=== PATIENT | female | born 1980 | race Caucasian/White ===

== ENCOUNTER 2016-06-16 08:06 | Emergency (ER) | payer MEDICARE ==
[~2016-06-16] VITALS: Ht 175.3 cm; Wt 100.0 kg
[~2016-06-16 08:06] MED LIST: CLONAZEPAM1 M1 PO; CRB400TCR; FERROCITE; LURA40TA PO; MINO100C PO; MIRT45TA PO; OMEP20TA86 PO; PROM25AM13; SYN25 PO; [UNRECOGNIZED DRUG - CODE] PO
[2016-06-16 08:07] VITALS: BP 119/96; PULSE 100; RESP 16; O2SAT 96
--- NOTE | 2016-06-16 08:10 | ED.REPORT ---
HPI-Psychiatric Illness Date of Service Jun 16, 2016 ED Provider: Dr. Kyrie Bobby MD A 35 year old female with a history of schizophrenia, seizures, bipolar disorder and suicidal ideation presents to the ED via EMS complaining of auditory and visual hallucinations that began approx. one week ago. Patient states that she can see "purple rats". She often forgets to take her Haldol and has not taken it today. Patient is currently staying at [facility] after recently leaving [facility] one week ago. Patient also reports insomnia and suicidal ideation with a plan to "drink bleach". She is currently taking Nitrofuran for a UTI. She denies recent alcohol use. Nursing Notes Stated Complaint: HALLUCINATIONS Chief Complaint: Psychiatric Complaint Nursing Notes Reviewed: Yes Allergies: Coded Allergies: buspirone (Verified Allergy, Severe, 06/16/16) divalproex sodium (Verified Allergy, Severe, 06/16/16) egg (Verified Allergy, Severe, 06/16/16) hydromorphone (Verified Allergy, Severe, SEIZURES, 06/16/16) sulfamethoxazole (Verified Allergy, Severe, 06/16/16) trimethoprim (Verified Allergy, Severe, 06/16/16) milk (Verified Allergy, Intermediate, 06/16/16) Scheduled ([Ferrocite]) 324 AM ClonazePAM-Expunged Drug, Do Not Renew! (ClonazePAM-Expunged Drug, Do Not Renew! ) 1 Mg Tablet 1 MG PO TID FOR ANXIETY Levetiracetam-Expunged Drug, Do Not Renew! (Levetiracetam-Expunged Drug, Do Not Renew!) 500 Mg Tab.er.24h 1,000 MG PO AM Levetiracetam-Expunged Drug, Do Not Renew! (Levetiracetam-Expunged Drug, Do Not Renew!) 500 Mg Tab.er.24h 1,000 MG PO NOON Levetiracetam-Expunged Drug, Do Not Renew! (Levetiracetam-Expunged Drug, Do Not Renew!) 500 Mg Tab.er.24h 1,500 MG PO HS Levothyroxine-Expunged Drug, Do Not Renew! (Synthroid-Expunged Drug, Do Not Renew!) 25 Mcg Tablet 25 MCG PO DAILY Lurasidone-Expunged Drug, Do Not Renew! (Latuda-Expunged Drug, Do Not Renew!) 40 Mg Tablet 40 MG PO DAILY Minocycline-Expunged Drug, Do Not Renew! (Minocin-Expunged Drug, Do Not Renew!) 100 Mg Capsule 100 MG PO BID Mirtazapine-Expunged Drug, Do Not Renew! (Remeron-Expunged Drug, Do Not Renew!) 45 Mg Tablet 45 MG PO HS Omeprazole-Expunged Drug, Do Not Renew! (Omeprazole-Expunged Drug, Do Not Renew! ) 20 Mg Tablet.dr 20 MG PO BID Miscellaneous Medications Carbamazepine-Expunged Drug, Do Not Renew! (Carbamazepine XR-Expunged Drug, Do Not Renew!) 400 Mg Tab.sr.12h Promethazine-Expunged Drug, Do Not Renew! (Phenergan-Expunged Drug, Do Not Renew !) 25 Mg Tab General Time Seen by MD: 08:09 Chief Complaint Hallucinations, auditory, Hallucinations, visual Hx Obtained From: Patient Arrived By: Ambulance Onset Occurred: 1 week ago Symptom Duration: Since onset Progression Since Onset: Unchanged Additional Notes: Insomnia Suicidal ideation Pertinent Negative: Pt denies other symptoms Recent Healthcare: No recent hospitalization, Recent doctor visit Risk-Psychiatric Illness Suicide Risk Stratification RF Statements: Risk factors reviewed Past Medical History Past Medical History Notes: PCP: Dr. Cason Past Medical History Seizures on [facility]-last seizure was yesterday Schizophrenia History of bipolar disorder and depression with multiple admissions for suicidal ideation Bipolar disorder Recurrent UTIs depression Reports: Acid reflux Past Surgical History none reported Smoking History Never Smoker Social History Pt currently lives at [facility] Alcohol Use: Denies alcohol use Other Social History: Local resident Ambulatory Status Independent Review of Systems Constitutional: Denies: Chills, Fever Respiratory: Denies: Shortness of breath Cardiovascular: Denies: Chest pain GI: Denies: Nausea, Vomiting Neurologic: Denies: Change LOC Psychiatric: Reports: Hallucinations, auditory, Hallucinations, visual, Insomnia, Suicidal ideation (w/ plan) Complete sys rev & neg: except as marked. Physical Exam Initial Vital Signs Vital Signs (First) Date Time Temp Pulse Resp B/P Pulse Ox O2 Delivery O2 Flow Rate FiO2 06/16/16 08:07 36.9 100 16 119/96 96 Room Air Initial VS: Reviewed Head / Eyes: Atraumatic, Normocephalic, PERRL Extremities: Vascular intact, Neuro intact, No swelling, No tenderness General/Constitutional: Awake, Alert Neurologic: Oriented X3 Abnormal Thinking / Perception: Positive: Hallucinations, auditory, Hallucinations, visual, Suicidal, with plan PSYCH: poor insight Respiratory / Chest: Atraumatic, Breath sounds NL, Breath sounds = bilat Cardiovascular: Heart rate NL, Regular rhythm, Heart sounds NL, No gallop, No murmurs, No rubs Skin: Atraumatic, Color NL, Warm, Dry Interpretation & Diagnostics Lab Results Interpretation Result Diagram: 06/16/16 0845 06/16/16 0845 Test 06/16/16 08:45 06/16/16 08:48 06/16/16 09:26 White Blood Count 6.4th/mm3 (3.8-10.1) Red Blood Count 4.30mil/mm3 (3.90-5.20) Hemoglobin 12.3g/dL (12.0-15.6) Hematocrit 37.1% (35.0-46.0) Mean Corpuscular Volume 86.3fL (81-100) Mean Corpuscular Hemoglobin 28.6pg (27.0-35.0) Mean Corpuscular Hemoglobin Concent 33.2% (32.0-37.0) Red Cell Distribution Width 13.5% (12.3-15.4) Platelet Count 245bil/L (150-400) Neutrophils (%) (Auto) 72.3% (40-74) Lymphocytes (%) (Auto) 19.6% (14-46) Monocytes (%) (Auto) 6.9% (4-12) Eosinophils (%) (Auto) 0.9% (0-5) Basophils (%) (Auto) 0.3% (0-3) Sodium Level 138mEq/L (134-144) Potassium Level 3.4mEq/L (3.5-5.2) Chloride Level 103mEq/L (97-108) Carbon Dioxide Level 22mmol/L (18-29) Blood Urea Nitrogen 4mg/dL (6-20) Creatinine 0.73mg/dL (0.57-1.00) Estimat Glomerular Filtration Rate 129mL/min (>59) Glucose Level 130mg/dL (60-99) Calcium Level 8.6mg/dL (8.5-10.1) Total Bilirubin 0.2mg/dL (0.0-1.2) Aspartate Amino Transf (AST/SGOT) 14U/L (0-50) Alanine Aminotransferase (ALT/SGPT) 15U/L (0-32) Alkaline Phosphatase 81U/L (25-150) Total Protein 7.2g/dL (6.4-8.4) Albumin 3.8g/dL (3.4-5.0) Thyroid Stimulating Hormone (TSH) 1.970uIU/mL (0.450-4.500) Hold Wiley Top Tube Received (Received) Hold Urine Received (Received) Lab Results Interpretation: Urine Dip Trace blood Follow up with formal UA UA : Negative Breathalyzer = 0 Tox Screen Positive: Benzodiazepine (prescribed) Re-Eval/Medical Decision Med Decision/Clinical Course See social work professor. Baseline SI without acting. Not going to be evicted. this is a fixed delusion Re-Evaluation/Progress #1: Time of Eval: 09:30 Patient Status: Condition improved Re-Evaluation/Progress Note: Patient is rechecked. She reports that she is allergic to eggs and dairy and was unable to eat her breakfast. Re-Evaluation/Progress #2: Time of Eval: 11:43 )( Re-Eval Psychiatric: No danger to self, No danger to others, No suicidal ideation, No homicidal ideation Patient Status: Condition improved Re-Evaluation/Progress Note: Patient is rechecked. She is informed of her lab results and diagnosis. All of the patient's questions are addressed. She agrees with the treatment plan to return to the ED for any suicidal ideation. Counseled Regarding: Diagnosis, Lab results, Need for follow-up, When/why to return to ED Discharge & Departure Impression: Primary Impression: Psychosis Psychosis type: unspecified psychosis type Qualified Code: F29 - Unspecified psychosis not due to a substance or known physiological condition Additional Impression: MS (multiple sclerosis) )( Condition at Discharge: No danger to self, No danger to others, No suicidal ideation, No homicidal ideation Disposition: Home Discharge Condition All VS Reviewed: Yes Condition: Stable Additional Instructions: Thank you for trusting us with your care this morning. Your emergency department evaluation today included interview, examination and lab work. Keep your follow up appointment with your counselor and call 911 if you have any concerns about harming yourself or others. Continue previous medications. Follow up with [facility] next week. Please return to the emergency department for any new or worsening symptoms. Referrals: Gabi Mckay MD (PCP) Lucille Cason Attestation Portions of this note were transcribed by Marina Helm. I, Dr. Bobyb personally performed the history, physical exam and medical decision-making; I reviewed and confirmed the accuracy of the information in the transcribed note. Signed by: Hermelinda Winchester, 06/16/16 1200. copies to: Gabi Mckay MD, Donald L MD Jun 16, 2016 08:10 MARINA HELM Jun 16, 2016 08:19
[2016-06-16 08:57] LABS: BASOPHILS % (AUTO) 0.3 % (0-3); EOSINOPHILS % (AUTO) 0.9 % (0-5); MONOCYTES % (AUTO) 6.9 % (4-12); Mean Corpuscular Hemoglobin 28.6 pg (27.0-35.0); Mean Corpuscular Volume 86.3 fL (81-100); NEUTROPHILS % (AUTO) 72.3 % (40-74); Platelet Count 245 bil/L (150-400)
[2016-06-16 12:20] VITALS: BP 115/71; PULSE 84; RESP 14; O2SAT 98
== END 2016-06-16 12:23 | disposition home or self-care (01) ==
LOC: SED 08:06
DX: F29 Unspecified psychosis not due to a substance or known physiological condition (principal); G35 Multiple sclerosis; R44.1 Visual hallucinations; G47.00 Insomnia, unspecified; R45.851 Suicidal ideations; F31.9 Bipolar disorder, unspecified; F20.9 Schizophrenia, unspecified; K21.9 Gastro-esophageal reflux disease without esophagitis; Z87.440 Personal history of urinary (tract) infections; Z88.1 Allergy status to other antibiotic agents; Z88.5 Allergy status to narcotic agent; Z88.8 Allergy status to other drugs, medicaments and biological substances; Z91.012 Allergy to eggs; Z91.018 Allergy to other foods

== ENCOUNTER 2016-07-27 15:16 | Emergency (ER) | payer MEDICARE ==
[2016-07-27 15:27] VITALS: BP 112/80; PULSE 83; RESP 16; O2SAT 99
[2016-07-27] MEDS ORDERED: Ondansetron 2 mg/mL 2 mL Inj IV PRN (15:30)
--- NOTE | 2016-07-27 15:53 | DRSVH ---
PROCEDURE: X-RAY CHEST ONE VIEW, PORTABLE ([id number]) INDICATIONS: SEIZURE TECHNIQUE: One view of the chest was acquired. COMPARISON: Prior chest plain films 01/26/13 2 view chest reviewed. FINDINGS: Surgical changes and devices: None. Lungs and pleura: No pleural effusions or pneumothorax. Lungs are clear. Mediastinum: Mediastinal contours appear normal. Heart size is normal. Bones and chest wall: No suspicious bony lesions. Overlying soft tissues appear unremarkable. IMPRESSION: Reduced inspiratory volume, no acute disease. No trauma found after seizure activity. The Dictated by: Nikos Stevenson M.D. on 07/27/2016 at 15:51 Approved by: Nikos Stevenson M.D. on 07/27/2016 at 15:52
[2016-07-27] MEDS ORDERED: 0.9% Sodium Chloride 1,000 ML IV ONE (15:55)
[2016-07-27 16:09] LABS: BASOPHILS % (AUTO) 0.3 % (0-3); EOSINOPHILS % (AUTO) 0.6 % (0-5); MONOCYTES % (AUTO) 6.4 % (4-12); Mean Corpuscular Hemoglobin 29.1 pg (27.0-35.0); Mean Corpuscular Volume 86.4 fL (81-100); NEUTROPHILS % (AUTO) 72.8 % (40-74); Platelet Count 194 bil/L (150-400)
[2016-07-27] MEDS ORDERED: levETIRAcetam 500 mg Tablet PO ONE (16:15)
[2016-07-27 16:29] LABS: Magnesium 2.2 mg/dL (1.6-2.6)
--- NOTE | 2016-07-27 16:41 | ED.REPORT ---
HPI-Seizure Date of Service Jul 27, 2016 ED Provider: Sam Laird DO History of Present Illness: Patient is a 35 y.o. F with PMH of seizure, schizoaffective disorder, recurrent UTI Patient stated that earlier today she felt like she was going to have a seizure, felt shaky, patient denies having convulsions, Denies head trauma, loss of consiousness Currently patient stated that she is feeling better now, reports some nausea, dysuria, hematuria, has not eaten in a day due to lack of food in house Reports taking seizure medication last night, missed both afternoon and morning doses of keppra. Typical seizures patient falls to ground and have full body convulsions. Nursing Notes Stated Complaint: POSSIBLE SEIZURE Chief Complaint: Seizure Nursing Notes Reviewed: Yes Allergies: Coded Allergies: buspirone (Verified Allergy, Severe, 06/16/16) divalproex sodium (Verified Allergy, Severe, 06/16/16) egg (Verified Allergy, Severe, 06/16/16) hydromorphone (Verified Allergy, Severe, SEIZURES, 06/16/16) sulfamethoxazole (Verified Allergy, Severe, 06/16/16) trimethoprim (Verified Allergy, Severe, 06/16/16) milk (Verified Allergy, Intermediate, 06/16/16) Scheduled ([Ferrocite]) 324 AM ClonazePAM-Expunged Drug, Do Not Renew! (ClonazePAM-Expunged Drug, Do Not Renew! ) 1 Mg Tablet 1 MG PO TID FOR ANXIETY Levetiracetam-Expunged Drug, Do Not Renew! (Levetiracetam-Expunged Drug, Do Not Renew!) 500 Mg Tab.er.24h 1,000 MG PO AM Levetiracetam-Expunged Drug, Do Not Renew! (Levetiracetam-Expunged Drug, Do Not Renew!) 500 Mg Tab.er.24h 1,000 MG PO NOON Levetiracetam-Expunged Drug, Do Not Renew! (Levetiracetam-Expunged Drug, Do Not Renew!) 500 Mg Tab.er.24h 1,500 MG PO HS Levothyroxine-Expunged Drug, Do Not Renew! (Synthroid-Expunged Drug, Do Not Renew!) 25 Mcg Tablet 25 MCG PO DAILY Lurasidone-Expunged Drug, Do Not Renew! (Latuda-Expunged Drug, Do Not Renew!) 40 Mg Tablet 40 MG PO DAILY Minocycline-Expunged Drug, Do Not Renew! (Minocin-Expunged Drug, Do Not Renew!) 100 Mg Capsule 100 MG PO BID Mirtazapine-Expunged Drug, Do Not Renew! (Remeron-Expunged Drug, Do Not Renew!) 45 Mg Tablet 45 MG PO HS Omeprazole-Expunged Drug, Do Not Renew! (Omeprazole-Expunged Drug, Do Not Renew! ) 20 Mg Tablet.dr 20 MG PO BID Miscellaneous Medications Carbamazepine-Expunged Drug, Do Not Renew! (Carbamazepine XR-Expunged Drug, Do Not Renew!) 400 Mg Tab.sr.12h Promethazine-Expunged Drug, Do Not Renew! (Phenergan-Expunged Drug, Do Not Renew !) 25 Mg Tab General Time Seen by Provider: 15:30 Chief Complaint Chief Complaint: Shaking Risk-Seizure NIH Stroke Scale Level of Consciousness: Alert and responsive (0) Ask Month & Age: Both questions right (0) Open/Close Eyes/Hand [place]: Performs both tasks (0) Horizontal EO Movements: None (0) Visual Armstrong: No visual loss (0) Facial Palsy: Normal symmetry (0) Right Arm Motor Drift (10s): No drift 10 sec (0) Left Arm Motor Drift (10s): No drift 10 sec (0) Right Leg Motor Drift (5s): No drift 5 sec (0) Left Leg Motor Drift (5s): No drift 5 sec (0) Limb Ataxia FNF/Heel-Tierney: No ataxia (0) Sensation (Arms/Legs/Face): No sensory loss (0) Language Aphasia: Loss fluency ID matls (1) Dysarthria: No dysarthria, normal (0) Extinction/Inattention: No exctinct/inattent (0) NIHSS Score: 1 Time NIHSS Performed: 16:00 Date NIHSS Performed: Jul 27, 2016 Past Medical History Past Medical History Notes: PCP: Dr. Cason Past Medical History Seizures on Keppra-last seizure was yesterday Schizophrenia History of bipolar disorder and depression with multiple admissions for suicidal ideation Bipolar disorder Recurrent UTIs depression Reports: Acid reflux Past Surgical History none reported Smoking History Never Smoker Social History Pt currently lives at [facility] Alcohol Use: Denies alcohol use Other Social History: Local resident Ambulatory Status Independent Review of Systems Basic Review of Systems GI: No abdominal pain, No anorexia, No nausea, No vomiting Constitutional: Denies: Chills, Fever Eyes: Denies: Blurred bilateral Respiratory: Denies: Dyspnea on exertion, Hemoptysis, Pleuritic pain Cardiovascular: Denies: Chest pain, Dyspnea on exertion Complete sys rev & neg: except as marked. Physical Exam Initial Vital Signs Initial VS: Reviewed Neck: Supple, No meningismus, Full range of motion, No swelling, Non-tender Respiratory / Chest: Breath sounds NL, Breath sounds = bilat, No respiratory distress, No rales, No rhonchi, No wheezing Cardiovascular: Heart rate NL, Regular rhythm, Heart sounds NL, Peripheral circulation NL Neurologic: Oriented X3, No motor deficits, No sensory deficits, CN II - XII intact, Reflexes equal bilat, Cerebellar NL Mental Status: Positive: Lethargic Speech: Positive: Slow, Slurred Head / Eyes: Normocephalic, PERRL, EOMI, No nystagmus, No photophobia Abdomen: Soft, No guarding, No rebound Tenderness/Guarding/Rebound: Positive: Tender suprapubic Psychiatric: Mood NL, Not suicidal, Not homicidal, No hallucinations Abnormal Mood/Affect: Positive: Flat affect Abnormal Thinking / Perception: Positive: Loose associations Interpretation & Diagnostics Lab Results Interpretation Test 07/27/16 16:00 07/27/16 18:20 White Blood Count 7.1th/mm3 (3.8-10.1) Red Blood Count 4.26mil/mm3 (3.90-5.20) Hemoglobin 12.4g/dL (12.0-15.6) Hematocrit 36.8% (35.0-46.0) Mean Corpuscular Volume 86.4fL (81-100) Mean Corpuscular Hemoglobin 29.1pg (27.0-35.0) Mean Corpuscular Hemoglobin Concent 33.7% (32.0-37.0) Red Cell Distribution Width 14.1% (12.3-15.4) Platelet Count 194bil/L (150-400) Neutrophils (%) (Auto) 72.8% (40-74) Lymphocytes (%) (Auto) 19.8% (14-46) Monocytes (%) (Auto) 6.4% (4-12) Eosinophils (%) (Auto) 0.6% (0-5) Basophils (%) (Auto) 0.3% (0-3) Sodium Level 140mEq/L (134-144) Potassium Level 3.3mEq/L (3.5-5.2) Chloride Level 102mEq/L (97-108) Carbon Dioxide Level 26mmol/L (18-29) Blood Urea Nitrogen 6mg/dL (6-20) Creatinine 0.81mg/dL (0.57-1.00) Estimat Glomerular Filtration Rate 115mL/min (>59) Glucose Level 93mg/dL (60-99) Lactic Acid Level 1.1mmol/L (0.4-2.0) Calcium Level 8.7mg/dL (8.5-10.1) Magnesium Level 2.2mg/dL (1.6-2.6) Total Bilirubin 0.3mg/dL (0.0-1.2) Aspartate Amino Transf (AST/SGOT) 14U/L (0-50) Alanine Aminotransferase (ALT/SGPT) 16U/L (0-32) Alkaline Phosphatase 77U/L (25-150) Total Protein 6.6g/dL (6.4-8.4) Albumin 3.7g/dL (3.4-5.0) Levetiracetam (Keppra) Level 34.6ug/mL (10.0-40.0) Urine Color Yellow (YELLOW) Urine Appearance Cloudy (CLEAR,HAZY) Urine pH 6.0 (5.0-8.0) Urine Specific Twilight 1.020 (1.003-1.035) Urine Protein Negativemg/dL (NEG,TRACE) Urine Glucose (UA) Negativemg/dL (NEGATIVE) Urine Ketones 15mg/dL (NEGATIVE) Urine Occult Blood Trace (NEGATIVE) Urine Nitrite Positive (NEGATIVE) Urine Bilirubin Negative (NEGATIVE) Urine Urobilinogen Normalmg/dL (NORMAL) Urine Leukocyte Esterase Large (NEGATIVE) Urine RBC 3-10/hpf (0-2) Urine WBC >50/hpf (0-5) Urine Epithelial Cells Moderate/hpf (NONE-MOD) Urine Crystals None seen (NONE SEEN) Urine Bacteria Many/hpf (NONE-FEW) Urine Hyaline Casts None/lpf (NONE) Urine Granular Casts None seen (NONE SEEN) Urine Waxy Casts None seen (NONE SEEN) Urine Red Blood Cell Casts None seen (NONE SEEN) Urine White Blood Cell Casts None seen (NONE SEEN) Urine Mucus None seen (None Seen) Urine Trichomonas None seen (NONE SEEN) Urine Yeast None (NONE SEEN) Urinalysis Comment None Urine Culture Reflexed Indicated Urine Opiates Screen Negative Urine Methadone Screen Negative Urine Barbiturates Screen Negative Urine Amphetamines Screen Negative Urine Benzodiazepines Screen Positive Urine Cocaine Metabolite Screen Negative Urine Cannabinoids Screen Negative ECG Interpretation ECG Interpretation: NSR rate 100 Normal [place] Do not agree with computer interpretation: No sign of Atrial Fibrillation No ventricular conduction delays Abnormal Rate: 100 Re-Eval/Medical Decision Med Decision/Clinical Course Patient is a 35 y.o. F presented with onset of shakiness and two missed doses of seizure medication, and dysuria for past two days. Patient has not had an overseizure since missing doses of medications. Signs and symptoms upon presentation likely due to missing doses of seizure medication, potentially in combination with dehydration and UTI. Need to r/o cardiogenic causes, TIA, head trauma DDx missed dose of seizure medication, cardiogenic syncope, dehydration, TIA, EKG did no signs of ST changes, A-fib, r/o carogenic causes NIH stroke scale 1 does not incidacte need to work up for CVA/head trauma No focal neurologic deficit on physical exam Give 1 L IV NS bolus x1 Keppra level ordered UA ordered CXR ordered CMP unremarkable Lactic acid normal CBC normal UA postive for UTI Start Ciprofloxacin 500 mg once Re-Evaluation/Progress #1: Time of Eval: 17:16 )( Re-Eval Neurologic Exam: Alert, Oriented X3 Patient Status: Condition improved Re-Evaluation/Progress Note: No urine ouput yet Recieved afternoon dose of keppra. 1 L IV NS given Patient states she is feeling better Re-Evaluation/Progress #2: Time of Eval: 19:32 )( Re-Eval Neurologic Exam: Alert, Oriented X3, Speech normal Patient Status: Condition improved, Moderate relief Re-Evaluation/Progress Note: Patient meets criteria for discharge and outpatient follow up Counseled Regarding: Diagnosis, Lab results, Need for follow-up, When/why to return to ED Discharge & Departure Impression: Primary Impression: UTI (urinary tract infection) Urinary tract infection type: site unspecified Hematuria presence: with hematuria Qualified Code: N39.0 - Urinary tract infection, site not specified Additional Impression: Nausea Discharge Condition All VS Reviewed: Yes Condition: Stable Patient Instructions: Urinary Tract Infection in Women (DC) Additional Instructions: During you visit to [facility] Emergency Department we obtained blood work for infectious markers, hemoglobin levels, and electrolytes. We obtained EKG of your heart which did not show emergent signs of heart damage We took labs which showed presence of a urinary tract infection All your lab values were within normal limits and your imaging showed no acute processes or abnormalities. Your vital signs were stable and safe for discharge. We will send you home with - 10 day course of Antibiotics (Ciprofloxacin) Do not hesitate to call emergency services or your primary care physician if you experience any of the following. - High unrelenting fevers. - Uncontrolled vomiting. - Severe hypertension. - Syncope or loss of consciousness. - Chest pain or severe shortness of breath. Continue to take medication as scheduled Continue to stay well hydrated. Follow up with your primary care physician in 1 weeks time following your emergency department visit for medication checks and general well-being. Referrals: Gabi Mckay MD (PCP) Attending Statement I saw and evaluated this patient with Dr. Isai Booth and agree with the documentation as above. It does not sound like the patient had a true seizure but has been feeling a little shaky and off from not taking her Keppra and also from a UTI. She will be treated for UTI and her Keppra was restarted here. copies to: Gabi Mckay MD, AARON J DO Jul 27, 2016 15:58 Sam Laird DO Aug 05, 2016 13:12 ISAI BOOTH DO Jul 27, 2016 15:58
[2016-07-27] MEDS ORDERED: Nitrofurantoin Monohyd-Macrocryst 100 mg Capsule PO ONE (17:30)
[2016-07-27] MEDS ORDERED: cefTRIAXone Inj 1,000 MG, Lidocaine PF 1% Inj 2.1 ML in Syringe 0 EACH IM ONE (19:00)
[2016-07-27 19:08] LABS: APPEARANCE,URINE CLOUDY (CLEAR,HAZY); COLOR,URINE YELLOW (YELLOW); OCCULT BLOOD,URINE TRACE (NEGATIVE); UROBILINOGEN,URINE NORMAL (NORMAL)
[2016-07-27 19:13] VITALS: BP 106/64; PULSE 80; RESP 16; O2SAT 100
[2016-07-27 20:11] VITALS: BP 106/64; PULSE 80; RESP 16; O2SAT 100
[2016-07-27] MEDS ORDERED: _Ciprofloxacin 500 mg Tablet PO SCH (20:30)
== END 2016-07-27 20:11 | disposition home or self-care (01) ==
LOC: EDBD 15:16 → SED 15:16
DX: N39.0 Urinary tract infection, site not specified (principal); R11.0 Nausea; F20.9 Schizophrenia, unspecified; B96.1 Klebsiella pneumoniae [K. pneumoniae] as the cause of diseases classified elsewhere; Z87.440 Personal history of urinary (tract) infections; Z88.5 Allergy status to narcotic agent; Z88.2 Allergy status to sulfonamides; Z91.011 Allergy to milk products; Z88.8 Allergy status to other drugs, medicaments and biological substances; Z91.012 Allergy to eggs
CPT/HCPCS: 36415; 71010; 80053; 80299; 81000; 83605; 83735; 85025; 87077; 87086; 87088; 87186; 93005; 96361; 96372; 96374; 99285; G0480; J0696; J2405; J7030

== ENCOUNTER 2016-09-03 16:41 | Emergency (ER) | payer MEDICARE, MEDICAID ==
[2016-09-03 16:48] VITALS: BP 109/47; PULSE 78; RESP 14; O2SAT 99
--- NOTE | 2016-09-03 16:49 | ED.REPORT ---
HPI-Dizziness / Weakness Date of Service Sep 03, 2016 ED Provider: Man Tyler DO A 36 year old female with a history of anemia in college, seizures, schizoaffective disorder, depression, hypothyroidism, and multiple other medical concerns is referred to the ED from Urgent Care due to hypotension. The pt has been experiencing low blood pressure for approximately one month. This is occasionally accompanied by dizziness, though she did not experience this today. She also admits to cough and UTI symptoms, but denies fever, vomiting, or diarrhea. The pt saw her PCP at [facility] today, who found that she was hypotensive and recommended that she be evaluated in the ED. Nursing Notes Stated Complaint: DIZZINESS Chief Complaint: General Complaint Nursing Notes Reviewed: Yes Allergies: Coded Allergies: buspirone (Verified Allergy, Severe, 09/03/16) divalproex sodium (Verified Allergy, Severe, 09/03/16) egg (Verified Allergy, Severe, 09/03/16) hydromorphone (Verified Allergy, Severe, SEIZURES, 09/03/16) sulfamethoxazole (Verified Allergy, Severe, 09/03/16) trimethoprim (Verified Allergy, Severe, 09/03/16) milk (Verified Allergy, Intermediate, 09/03/16) Scheduled ([Ferrocite]) 324 AM ClonazePAM-Expunged Drug, Do Not Renew! (ClonazePAM-Expunged Drug, Do Not Renew! ) 1 Mg Tablet 1 MG PO TID FOR ANXIETY Levetiracetam-Expunged Drug, Do Not Renew! (Levetiracetam-Expunged Drug, Do Not Renew!) 500 Mg Tab.er.24h 1,000 MG PO AM Levetiracetam-Expunged Drug, Do Not Renew! (Levetiracetam-Expunged Drug, Do Not Renew!) 500 Mg Tab.er.24h 1,000 MG PO NOON Levetiracetam-Expunged Drug, Do Not Renew! (Levetiracetam-Expunged Drug, Do Not Renew!) 500 Mg Tab.er.24h 1,500 MG PO HS Levothyroxine-Expunged Drug, Do Not Renew! (Synthroid-Expunged Drug, Do Not Renew!) 25 Mcg Tablet 25 MCG PO DAILY Lurasidone-Expunged Drug, Do Not Renew! (Latuda-Expunged Drug, Do Not Renew!) 40 Mg Tablet 40 MG PO DAILY Minocycline-Expunged Drug, Do Not Renew! (Minocin-Expunged Drug, Do Not Renew!) 100 Mg Capsule 100 MG PO BID Mirtazapine-Expunged Drug, Do Not Renew! (Remeron-Expunged Drug, Do Not Renew!) 45 Mg Tablet 45 MG PO HS Omeprazole-Expunged Drug, Do Not Renew! (Omeprazole-Expunged Drug, Do Not Renew! ) 20 Mg Tablet.dr 20 MG PO BID Miscellaneous Medications Carbamazepine-Expunged Drug, Do Not Renew! (Carbamazepine XR-Expunged Drug, Do Not Renew!) 400 Mg Tab.sr.12h Promethazine-Expunged Drug, Do Not Renew! (Phenergan-Expunged Drug, Do Not Renew !) 25 Mg Tab General Time Seen by MD: 16:49 Chief Complaint Dizzy Hx Obtained From: Patient Arrived By: Walk-in Onset Occurred: 1 - 4 hours ago Symptom Duration: Since onset Recent Healthcare: No recent hospitalization, Recent doctor visit Similar Sx Previous: Yes Past Medical History Past Medical History Notes: PCP: Dr. Cason Past Medical History Seizures on Keppra Schizophrenia Hypothyroidism History of bipolar disorder and depression with multiple admissions for suicidal ideation Bipolar disorder Recurrent UTIs depression Anemia in college Reports: Acid reflux Past Surgical History none reported Smoking History Never Smoker Social History Pt currently lives at [facility] Alcohol Use: Denies alcohol use Other Social History: Local resident Ambulatory Status Independent Review of Systems Review of Systems Note: hypotension occasional dizziness, not today Constitutional: Denies: Fever Respiratory: Denies: Non-productive cough, Shortness of breath Cardiovascular: Denies: Chest pain GI: Denies: Abdominal pain Skin: Denies Rash Complete sys rev & neg: except as marked. Physical Exam Initial Vital Signs Vital Signs (First) Date Time Temp Pulse Resp B/P Pulse Ox O2 Delivery O2 Flow Rate FiO2 09/03/16 16:48 36.5 78 14 109/47 99 Room Air Initial VS: Reviewed General/Constitutional: Awake, Alert slow to respond poor hygiene Head / Eyes: Atraumatic, Normocephalic, PERRL, EOMI Respiratory / Chest: Atraumatic, Breath sounds NL, Breath sounds = bilat, No respiratory distress Cardiovascular: Heart rate NL, Regular rhythm, Heart sounds NL Neurologic: Oriented X3, Speech NL, No motor deficits, No sensory deficits ENT: Atraumatic, Airway patent, Mucous membranes moist Neck: Atraumatic, Supple, Full range of motion Abdomen: Atraumatic, Soft, Non-tender Back: Atraumatic, Full range of motion Lower Extremity / Pelvis / MS: Atraumatic, Full range of motion Skin: Atraumatic, Color NL, No rash, Warm, Dry Psychiatric: Mood NL Abnormal Mood/Affect: Positive: Flat affect Upper Extremity / MS: Atraumatic, Full range of motion Interpretation & Diagnostics ECG Interpretation ECG Interpretation: normal sinus rhythm with a rate of 57 Time: 18:07 Interpreted by: ED physician Re-Eval/Medical Decision Med Decision/Clinical Course Reportedly having hypotensive episodes, awaiting lab evaluation to exclude significant dehydration, cardiogenic causes, severe anemia urine and chest x-ray pending to exclude pneumonia or UTI. Care transferred to Dr. Harshil Guevara Source of Hx: Old records Counseled Regarding: Diagnosis, Lab results, Need for follow-up, When/why to return to ED Patient Discharge & Departure Shift Change Sign-Out Patient Care Transferred: Yes Discussed Complaint(s): Yes Laboratory Evaluation: Ordered, not yet done Imaging Studies: Ordered, not yet done Additonal Information: awt workup Disposition: Home Discharge Condition All VS Reviewed: Yes Condition: Stable Referrals: Lucille Cason DO (PCP) Care Transferred to: Harshil Guevara Care Transferred at: 18:00 Scribe Attestation Portions of this note were transcribed by Quiana Kerns. I, Dr. Tyler personally performed the history, physical exam and medical decision-making; I reviewed and confirmed the accuracy of the information in the transcribed note. Signed by: Hermelinda Hong, 09/03/16 and 1707. Lucille Cason Timothy S DO Sep 03, 2016 16:49 QUIANA KERNS Sep 03, 2016 17:09
[2016-09-03] MEDS ORDERED: 0.9% Sodium Chloride 1,000 ML IV ONE (17:20)
[2016-09-03 18:44] LABS: BASOPHILS % (AUTO) 0.3 % (0-3); EOSINOPHILS % (AUTO) 1.5 % (0-5); MONOCYTES % (AUTO) 6.3 % (4-12); Mean Corpuscular Hemoglobin 28.5 pg (27.0-35.0); Mean Corpuscular Volume 86.1 fL (81-100); NEUTROPHILS % (AUTO) 62.4 % (40-74); Platelet Count 207 bil/L (150-400)
[2016-09-03 18:51] LABS: APPEARANCE,URINE CLOUDY (CLEAR,HAZY); COLOR,URINE YELLOW (YELLOW); OCCULT BLOOD,URINE SMALL (NEGATIVE); UROBILINOGEN,URINE NORMAL (NORMAL)
[2016-09-03 19:07] LABS: TROPONIN T < 0.010 ug/L (0.0-0.011)
[2016-09-03] MEDS ORDERED: cefTRIAXone Inj 1,000 MG in Dextrose 5% Minibag Plus 50 ML IV ONE (19:10)
[2016-09-03] MEDS ORDERED: CEPH-512 PO (19:30)
[2016-09-03 19:36] VITALS: BP 100/74; PULSE 67; RESP 15; O2SAT 100
--- NOTE | 2016-09-03 19:54 | DRSVH ---
PROCEDURE: X-RAY CHEST, TWO VIEWS ([id number]) INDICATIONS: cough TECHNIQUE: 2 views of the chest were acquired. COMPARISON: [facility], [facility], XR CHEST 1VW (PORTABLE), 07/27/2016, 15:26. FINDINGS: Surgical changes and devices: None. Lungs and pleura: No pleural effusions or pneumothorax. Lungs are clear. Mediastinum: Mediastinal contours are normal. Heart size is normal. Bones and chest wall: No suspicious bony abnormalities. Soft tissues appear unremarkable. IMPRESSION: Normal for age. Source of persistent cough is not seen. Dictated by: Nikos Stevenson M.D. on 09/03/2016 at 19:52 Approved by: Nikos Stevenson M.D. on 09/03/2016 at 19:52
[2016-09-03 20:31] VITALS: BP 104/54; PULSE 69; RESP 16; O2SAT 96
== END 2016-09-03 20:33 | disposition home or self-care (01) ==
LOC: SED 16:41
DX: N39.0 Urinary tract infection, site not specified (principal); Z79.899 Other long term (current) drug therapy; Z88.2 Allergy status to sulfonamides; Z88.5 Allergy status to narcotic agent; Z88.8 Allergy status to other drugs, medicaments and biological substances; Z91.018 Allergy to other foods
CPT/HCPCS: 36415; 71020; 80053; 80156; 81000; 81025; 84484; 85025; 87086; 87088; 87186; 93005; 96365; 99285; G0463; J0696; J7030

== ENCOUNTER 2016-09-13 14:09 | Emergency (ER) | payer MEDICARE, MEDICAID ==
[~2016-09-13 14:09] MED LIST changes: +CEPH-512 PO
[2016-09-13 14:12] VITALS: BP 110/84; PULSE 84; RESP 15; O2SAT 100
--- NOTE | 2016-09-13 16:23 | ED.REPORT ---
HPI-General Illness Date of Service Sep 13, 2016 ED Provider: Doc,Ed MD The patient is a 36 year old female with history of schizophrenia, seizures on Keppra, hypothyroidism, bipolar disorder and depression with multiple admissions for suicidal ideations, who presents to the emergency department requesting medical clearance for crisis respite. The patient has recently been hearing voices and seeing things that aren't there. She has not been sleeping well and has been having a difficult time at home. She reports mostly taking her medication as prescribed but not always. She also reports decreased urinary urgency and decreased urination. She last urinated last night. She has not been eating and drinking normally. Her [facility] clinician is with her at bedside. She denies suicidal ideation, fever, abdominal pain, vomiting or productive cough. Nursing Notes Stated Complaint: NEEDS TO BE MEDICALLY CLEARED Chief Complaint: Psychiatric Complaint Nursing Notes Reviewed: Yes Allergies: Coded Allergies: buspirone (Verified Allergy, Severe, 09/03/16) divalproex sodium (Verified Allergy, Severe, 09/03/16) egg (Verified Allergy, Severe, 09/03/16) hydromorphone (Verified Allergy, Severe, SEIZURES, 09/03/16) sulfamethoxazole (Verified Allergy, Severe, 09/03/16) trimethoprim (Verified Allergy, Severe, 09/03/16) milk (Verified Allergy, Intermediate, 09/03/16) Scheduled ([Ferrocite]) 324 AM Cephalexin (Keflex) 500 Mg Capsule 500 MG PO QID Cephalexin (Keflex) 500 Mg Capsule 500 MG PO QID ClonazePAM-Expunged Drug, Do Not Renew! (ClonazePAM-Expunged Drug, Do Not Renew! ) 1 Mg Tablet 1 MG PO TID FOR ANXIETY Levetiracetam-Expunged Drug, Do Not Renew! (Levetiracetam-Expunged Drug, Do Not Renew!) 500 Mg Tab.er.24h 1,000 MG PO AM Levetiracetam-Expunged Drug, Do Not Renew! (Levetiracetam-Expunged Drug, Do Not Renew!) 500 Mg Tab.er.24h 1,000 MG PO NOON Levetiracetam-Expunged Drug, Do Not Renew! (Levetiracetam-Expunged Drug, Do Not Renew!) 500 Mg Tab.er.24h 1,500 MG PO HS Levothyroxine-Expunged Drug, Do Not Renew! (Synthroid-Expunged Drug, Do Not Renew!) 25 Mcg Tablet 25 MCG PO DAILY Lurasidone-Expunged Drug, Do Not Renew! (Latuda-Expunged Drug, Do Not Renew!) 40 Mg Tablet 40 MG PO DAILY Minocycline-Expunged Drug, Do Not Renew! (Minocin-Expunged Drug, Do Not Renew!) 100 Mg Capsule 100 MG PO BID Mirtazapine-Expunged Drug, Do Not Renew! (Remeron-Expunged Drug, Do Not Renew!) 45 Mg Tablet 45 MG PO HS Omeprazole-Expunged Drug, Do Not Renew! (Omeprazole-Expunged Drug, Do Not Renew! ) 20 Mg Tablet.dr 20 MG PO BID Miscellaneous Medications Carbamazepine-Expunged Drug, Do Not Renew! (Carbamazepine XR-Expunged Drug, Do Not Renew!) 400 Mg Tab.sr.12h Promethazine-Expunged Drug, Do Not Renew! (Phenergan-Expunged Drug, Do Not Renew !) 25 Mg Tab General Time Seen by MD: 16:22 Chief Complaint Medical clearance Hx Obtained From: Patient Arrived By: Walk-in Sudden in Onset?: No Onset Occurred: More than a week ago... Symptom Duration: Since onset Severity: Current: No pain currently Severity: Maximum: No pain Recent Healthcare: No recent doctor visit, No recent hospitalization Similar Sx Previous: Yes Past Medical History Past Medical History Notes: PCP: Dr. Cason Past Medical History Seizures on Keppra Schizophrenia Hypothyroidism History of bipolar disorder and depression with multiple admissions for suicidal ideation Recurrent UTIs Hx of anemia Acid reflux Past Surgical History none reported Family History Noncontirbutory Smoking History Never Smoker Social History Pt currently lives at [facility] Alcohol Use: Denies alcohol use Other Social History: Local resident Ambulatory Status Independent Review of Systems +decreased fluid intake, decreased appetite Full Review of Systems Constitutional: Denies: Fever Respiratory: Denies: Prod cough, bloody, Prod cough, brown, Prod cough, clear, Prod cough, green, Prod cough, white, Prod cough, yellow GI: Denies: Abdominal pain, Vomiting Female: Reports: Urinary frequency, Urinary urgency, Urination decreased Psychiatric: Reports: Hallucinations, auditory, Hallucinations, visual, Insomnia, Denies: Suicidal ideation Complete sys rev & neg: except as marked. Physical Exam Vital Signs Vital Signs Date Time Temp Pulse Resp B/P Pulse Ox O2 Delivery O2 Flow Rate FiO2 09/13/16 14:12 36.5 84 15 110/84 100 Room Air Initial VS: Reviewed Head / Eyes: Atraumatic, Normocephalic, PERRL ENT: Mucous membranes moist, Conjunctiva normal, No scleral icterus Neck: Supple, Non-tender, Full range of motion Respiratory: Breath sounds normal, Clear to auscultation, No respiratory distress Cardiovascular: Regular rate & rhythm, Heart sounds normal, Intact distal pulses Abdomen / GI: Soft, Non-tender, No guarding, No rebound, No distention Lymphatic: No lymphadenopathy Extremities: Vascular intact, Neuro intact, No swelling, No tenderness Skin: Warm, Dry, No cyanosis General/Constitutional: Awake, Alert, No acute distress, Cooperative Skin: Color NL, Warm Rash / Lesion Notes: Single excoriated lesion in the center of her sternum that is about 1 mm. Neurologic: Oriented X3, Speech NL, No motor deficits, No sensory deficits, Cerebellar NL, Memory NL, Gait NL Psychiatric: Not suicidal, Not homicidal Abnormal Mood/Affect: Positive: Flat affect Abnormal Thinking / Perception: Positive: Hallucinations, auditory, Hallucinations, visual Interpretation & Diagnostics Lab Results Interpretation Test 09/13/16 18:00 Hold Urine Received (Received) Re-Eval/Medical Decision Med Decision/Clinical Course Patient will be transferred to crisis respite for monitored care. She may have a urinary tract infection will be started on Keflex. This is based on prior sensitivities of urine culture. Return and follow-up options given. Source of Hx: Old records Consultation : Consulted With: hatchery worker Call Returned at: 17:25 Note: The ED social service worker spoke with crisis respite. They do not have a bed available for the patient at this time. Counseled Regarding: Diagnosis, Lab results, Need for follow-up, When/why to return to ED Discharge & Departure Primary Impression: UTI (urinary tract infection) Urinary tract infection type: site unspecified Hematuria presence: without hematuria Qualified Code: N39.0 - Urinary tract infection, site not specified Additional Impression: Psychosis Psychosis type: unspecified psychosis type Qualified Code: F29 - Unspecified psychosis not due to a substance or known physiological condition Disposition: Home Discharge Condition All VS Reviewed: Yes Condition: Stable Additional Instructions: Thank you for entrusting us with your care today. You are medically cleared and have screen with crisis respite. You have a bed available at 3am. It is important that you take your medications and keflex as prescribed. Please return for any new or concerning symptoms. Referrals: Lucille Cason DO (PCP) Scribe Attestation Portions of this note were transcribed by Marimar Couch. I, Dr. Tyler personally performed the history, physical exam and medical decision-making; I reviewed and confirmed the accuracy of the information in the transcribed note. Signed by: Hermelinda Ballesteros, 09/13/2016 at 1802. copies to: uLcille Cason Timothy S DO Sep 13, 2016 16:23 Marimar Couch Sep 13, 2016 16:27
[2016-09-13] MEDS ORDERED: CEPH-512 PO (17:59)
[2016-09-13 18:49] VITALS: BP 112/69; PULSE 69; RESP 14; O2SAT 100
== END 2016-09-13 18:49 | disposition home or self-care (01) ==
LOC: SED 14:09
DX: N39.0 Urinary tract infection, site not specified (principal); F29 Unspecified psychosis not due to a substance or known physiological condition; E03.9 Hypothyroidism, unspecified; Z88.8 Allergy status to other drugs, medicaments and biological substances; Z88.5 Allergy status to narcotic agent